=== PATIENT | female | born 1975 | race Caucasian/White ===

== ENCOUNTER 2023-01-30 16:29 | Emergency (ER) | payer MEDICARE, SELFPAY ==
--- NOTE | ~2023-01-30 | US_ITS ---
EXAMINATION: US venous doppler LE RT DATE: 01/30/2023 18:05 INDICATION: Right leg swelling . TECHNIQUE: Grayscale images without and with compression and Doppler images of the right lower extrem ity veins were obtained. COMPARISON: None FINDINGS: The right common femoral vein, profunda (deep) femoral vein, femoral vein, popliteal vein, peroneal v ein, posterior tibial veins, and greater saphenous vein are patent. IMPRESSION: Patent right lower extremity veins. No evidence of deep venous thrombosis. Reviewed, dictated and finalized at location K.
[2023-01-30 16:32] VITALS: BP 143/91; PULSE 74; RESP 15; O2SAT 100
--- NOTE | 2023-01-30 18:31 | ED.RECABL ---
HPI - Recheck/Abnormal Lab/Rx General Chief Complaint: Recheck/Abnormal Lab/Rx Stated Complaint: HTN, LEG PAIN Time Seen by Provider: 01/30/23 16:31 History of Present Illness HPI narrative: This is a 47-year-old female, with history of hypertension, who presents to the emergency department complaining of high blood pressure and leg pain. The patient states she took her blood pressure at home, and found it to be 160s over 100s. She also complains of bilateral leg pain, the right greater than the left, rated 5/10, described as dull and associated with some swelling compared to the left. Related Data Allergies Allergy/AdvReac Type Severity Reaction Status Date / Time Penicillins Allergy Hives Verified 01/30/23 16:33 Review of Systems Review of Systems: CONSTITUTIONAL: Denies fever, chills, or sweats. CARDIOVASCULAR: Right leg swelling denies chest pain, palpitations, RESPIRATORY: Denies cough or dyspnea. GASTROINTESTINAL: Denies abdominal pain, nausea, vomiting, or diarrhea. GENITOURINARY: Denies dysuria or hematuria. SKIN: Denies rash or itching. MUSCULOSKELETAL: Bilateral leg pain denies back pain, or myalgia. NEUROLOGIC: Denies headache, numbness, dizziness, or weakness. PSYCHIATRIC: Denies anxiety or depression. PMFSH Past Medical History Medical History (Updated 01/30/23 @ 18:43 by Jasson Love MD) Hypertension Surgical History Surgical History (Updated 01/30/23 @ 18:43 by Jasson Love MD) No significant past surgical history Social History Social History (Updated 01/30/23 @ 18:43 by Jasson Love MD) Smoking status: Current every day smoker Alcohol intake: never Substance use: never Exam Narrative: GENERAL: Well-developed, well-nourished, and in no acute distress. HEAD: Normocephalic, atraumatic. EYES: PERRLA and EOMI. CHEST: Clear to auscultation. No respiratory distress. No wheezes rales or rhonchi HEART: Regular rate and rhythm. No murmur heard. Normal peripheral pulses. ABDOMEN: Soft, nontender, nondistended, normal active bowel sounds. EXTREMITIES: Normal range of motion. Trace lower extremity edema of the right leg. No noted edema on the left SKIN: Warm, dry, no rash. NEURO: Alert and oriented x3. Moving all 4 limbs purposefully. PSYCH: Normal mood and affect. Course Course Emergency Course: 18:32 - The patient's blood pressure improved to 143/91 without intervention. Ultrasound of the right lower extremity not concerning for DVT. Will discharge with recommendation for primary care follow-up. Discussed return and emergency precautions including signs/symptoms of ACS and respiratory distress. The patient voiced understanding and is comfortable with the plan. All questions answered to her satisfaction Vital Signs Vital signs: Vital Signs Pulse Rate 74 01/30/23 16:32 Respiratory Rate 15 01/30/23 16:32 Blood Pressure 143/91 H 01/30/23 16:32 Pulse Oximetry 100 01/30/23 16:32 Oxygen Delivery Room Air 01/30/23 16:32 Pulse Rate 74 01/30/23 16:32 Respiratory Rate 15 01/30/23 16:32 Blood Pressure 143/91 H 01/30/23 16:32 Pulse Oximetry 100 01/30/23 16:32 Oxygen Delivery Room Air 01/30/23 16:32 MDM - Recheck/Abnormal Lab/Rx MDM Narrative Medical decision making narrative: Plan: Imaging, blood pressure control, reassess Differential Diagnosis Differential diagnosis: Likely other (DVT, hypertension, other) Discharge Plan Discharge Clinical Impression: Hypertension, Right leg swelling Patient Disposition: Home, Self-Care Condition: Stable Instructions: Antibiotic Form, Hypertension (ED) Additional Instructions: You were seen in the emergency department. An ultrasound was not concerning for DVT in the leg. I recommend continuing your blood pressure medications and following up with a primary care doctor. If you develop chest pain, shortness of breath, loss of consciousness, or if you have other emerge
--- NOTE | 2023-01-30 19:30 | PC.NURSE ---
Ana Maria from [employer] provided patient and patient's with cab voucher to [facility]. Patient and spouse to wait for cab in lobby.
== END 2023-01-30 19:30 | disposition home or self-care (01) ==
PROVIDERS: Emergency Provider Preventive Medicine Aerospace Medicine
DX: I10 Essential (primary) hypertension (principal); R22.41 Localized swelling, mass and lump, right lower limb; F17.200 Nicotine dependence, unspecified, uncomplicated
CPT/HCPCS: 93971; 99284